=== PATIENT | male | born 1950 | race Caucasian/White ===

== ENCOUNTER 2018-07-28 13:40 | Outpatient (CLI) | payer MEDICARE, BC ==
--- NOTE | 2018-07-28 15:46 | RAD ---
CHEST 2 VIEWS: INDICATION: History of preprocedure examination. COMPARISON: None. FINDINGS: There is mild subsegmental atelectasis within the lingula. The right lung is clear. Heart size is n ormal. Aorta is tortuous. Cholecystectomy clips are seen within the right upper quadrant. No acute osseous abnormality is evident. IMPRESSION: Areas of subsegmental atelectasis in the lingula. Otherwise, negative. POS: [facility]
== END 2018-07-28 13:41 | disposition home or self-care (01) ==
LOC: BICRAD 13:40
PROVIDERS: ATTEND Internal Medicine
DX: Z01.818 Encounter for other preprocedural examination (principal); J98.11 Atelectasis
CPT/HCPCS: 71046

== ENCOUNTER 2023-03-11 09:03 | Day surgery (SDC) | payer MEDICARE, BC ==
[2023-03-11] MEDS ORDERED: diphenhydrAMINE 25 MG CAP PO SCH (10:15)
[2023-03-11] MEDS ORDERED: Acetaminophen 500 MG TAB PO SCH (10:15)
[2023-03-11] MEDS ORDERED: Acetaminophen 500 MG TAB ONE (10:24)
[2023-03-11] MEDS ORDERED: diphenhydrAMINE 25 MG CAP ONE (10:26)
[2023-03-11] MEDS ORDERED: FLU VACC QS2023(65UP)/MF59C/PF 60 MCG/0.5 ML SYRINGE IM ONE (16:00)
[2023-03-11 17:14] VITALS: BP 123/64; TEMP 98.2
== END 2023-03-11 17:08 | disposition home or self-care (01) ==
LOC: ONC/OP 09:03
PROVIDERS: ATTEND Internal Medicine Hematology & Oncology
DX: D64.9 Anemia, unspecified (principal); D69.59 Other secondary thrombocytopenia
CPT/HCPCS: 36430; 86850; 86900; 86901; 86920; 90694; G0008; P9016; 90471

== ENCOUNTER 2023-03-23 08:00 | Outpatient (CLI) | payer MEDICARE, BC | END 2023-03-23 08:01 | disposition home or self-care (01) | LOC: PET 08:00 | PROVIDERS: ATTEND Internal Medicine Hematology & Oncology | DX: C90.00 Multiple myeloma not having achieved remission (principal) | CPT/HCPCS: 78816; A9552 ==

== ENCOUNTER → 2023-03-28 | Day surgery (SDC) | payer MEDICARE, BC ==
[~2023-03-28] MED LIST: FLU VACC QS2023(65UP)/MF59C/PF 60 MCG/0.5 ML SYRINGE IM ONE; Lidocaine 1% PF 5 ML VIAL ONE; Midazolam HCl 2 mg/2 ml Vial ONE; Sodium Bicarbonate 2.5 MEQ/5 ML VIAL ONE; fentaNYL 50 mcg/mL 1 mL Vial ONE
== END ==
LOC: CT 08:22
PROVIDERS: ATTEND Internal Medicine Hematology & Oncology
PROC: 079T3ZX Drainage of Bone Marrow, Percutaneous Approach, Diagnostic (ICD-10-PCS; principal; 2023-03-28)
DX: C90.00 Multiple myeloma not having achieved remission (principal); D63.8 Anemia in other chronic diseases classified elsewhere; E78.2 Mixed hyperlipidemia; Z96.651 Presence of right artificial knee joint; Z90.49 Acquired absence of other specified parts of digestive tract; Z01.812 Encounter for preprocedural laboratory examination
CPT/HCPCS: 20225; 36415; 77002; 85025; 85097; 85610; 85730; 88184; 88185; 88237; 88264; 88280; 88305; 88311; 88341; 88342; J2250; J3010

== ENCOUNTER 2023-07-06 14:43 | Inpatient (IN) | payer MEDICARE, BC ==
[2023-07-07] MEDS ORDERED: Ondansetron PF 4 MG/2 ML Vial IVP PRN (03:32)
[2023-07-07] MEDS ORDERED: Ondansetron ODT 4 MG TAB PO PRN (03:32)
[2023-07-07] MEDS ORDERED: Acetaminophen 650 MG Suppository PR PRN (03:32)
[2023-07-07] MEDS ORDERED: Acetaminophen 325 MG TAB PO PRN (03:32)
[2023-07-07 05:21] LABS: #Monocytes 0.4 thou/uL (0.11-0.59); #Neutrophils 2.6 thou/uL (1.40-6.50); %Basophils 0.3 % (0.0-1.0); %Eosinophils 1.1 % (0.0-10.0); %Lymphocytes 13.6 % (21.0-51.0); %Monocytes 11.1 % (0.0-10.0); %Neutrophils 73.3 % (42.0-75.0); Hemoglobin 9.4 g/dL (14.0-18.0); Mean Corpuscular HGB CONC 31.3 g/dL (32.0-36.0); Mean Corpuscular Hemoglobin 29.5 pg (27.0-31.0); Platelet Count 113 10x3/uL (130-400); RBC Distribution Width 19.6 % (11.5-14.5); Red Blood Cell (RBC) Count 3.19 mill/uL (4.70-6.10); White Blood Cell (WBC) Count 3.5 10x3/uL (4.8-10.8)
[2023-07-07 05:42] LABS: Anion Gap 7 mmol/L (10-20); BUN (Urea Nitrogen) 19 mg/dL (8.4-25.7); Calc. Creatinine Clearance 89 mL/min (70-130); Calcium 8.2 mg/dL (7.8-10.44); Carbon Dioxide 24 mmol/L (23-31); Chloride 107 mmol/L (98-107); Estimated GFR 93; Glucose 96 mg/dL (83-110); Potassium 3.8 mmol/L (3.5-5.1); Sodium 134 mmol/L (136-145)
[2023-07-07] MEDS: Sertraline 25 MG TAB PO SCH (09:43)
[2023-07-07] MEDS: valACYclovir 500 MG TAB PO SCH (16:16)
[2023-07-07] MEDS: Aspirin 81 mg Enteric Coated Tablet PO SCH (16:16)
[2023-07-07] MEDS ORDERED: Communication Order-Pharmacy FS SCH (17:31)
[2023-07-07] MEDS: Atorvastatin Calcium 40 MG TAB PO SCH (20:54)
[2023-07-07] MEDS: Metoprolol Tartrate 25 MG TAB PO SCH (20:54)
[2023-07-07] MEDS ORDERED: Enoxaparin 80 MG (0.8 mL) SYRINGE SC SCH (21:00)
[2023-07-08 05:23] LABS: #Eosinphils 0.1 thou/uL (0.0-0.7); #Monocytes 0.4 thou/uL (0.11-0.59); #Neutrophils 2.8 thou/uL (1.40-6.50); %Basophils 0.3 % (0.0-1.0); %Eosinophils 1.3 % (0.0-10.0); %Lymphocytes 14.2 % (21.0-51.0); %Monocytes 11.3 % (0.0-10.0); %Neutrophils 72.4 % (42.0-75.0); Hematocrit 28.6 % (42.0-52.0); Hemoglobin 8.8 g/dL (14.0-18.0); Mean Corpuscular HGB CONC 30.8 g/dL (32.0-36.0); Mean Corpuscular Hemoglobin 28.6 pg (27.0-31.0); Mean Corpuscular Volume 92.9 fl (78.0-98.0); Mean Platelet Volume 10.5 fL (7.4-10.4); Platelet Count 132 10x3/uL (130-400); RBC Distribution Width 19.4 % (11.5-14.5); Red Blood Cell (RBC) Count 3.08 mill/uL (4.70-6.10); White Blood Cell (WBC) Count 3.8 10x3/uL (4.8-10.8)
[2023-07-08 05:58] LABS: Anion Gap 9 mmol/L (10-20); BUN (Urea Nitrogen) 17 mg/dL (8.4-25.7); Calc. Creatinine Clearance 90 mL/min (70-130); Calcium 8.4 mg/dL (7.8-10.44); Carbon Dioxide 24 mmol/L (23-31); Chloride 106 mmol/L (98-107); Estimated GFR 93; Glucose 90 mg/dL (83-110); Magnesium 1.4 mg/dL (1.6-2.6); Potassium 3.7 mmol/L (3.5-5.1); Sodium 135 mmol/L (136-145)
[2023-07-08] MEDS: Magnesium Sulfate In Water 4 GM in Premix 1 BAG IVPB SCH (08:17)
[2023-07-08] MEDS: Enoxaparin 60 MG (0.6 mL) SYRINGE SC SCH (08:17)
[2023-07-08] MEDS: valACYclovir 500 MG TAB PO SCH (08:18)
[2023-07-08] MEDS: Metoprolol Tartrate 25 MG TAB PO SCH (08:20)
[2023-07-08] MEDS ORDERED: Aspirin 81 mg Enteric Coated Tablet PO SCH (09:00)
[2023-07-10 06:04] LABS: #Monocytes 0.7 thou/uL (0.11-0.59); #Neutrophils 2.6 thou/uL (1.40-6.50); %Basophils 0.5 % (0.0-1.0); %Eosinophils 0.5 % (0.0-10.0); %Lymphocytes 13.3 % (21.0-51.0); %Monocytes 18.2 % (0.0-10.0); Hematocrit 30.1 % (42.0-52.0); Hemoglobin 9.4 g/dL (14.0-18.0); Mean Corpuscular HGB CONC 31.2 g/dL (32.0-36.0); Mean Corpuscular Hemoglobin 29.2 pg (27.0-31.0); Mean Corpuscular Volume 93.5 fl (78.0-98.0); Mean Platelet Volume 10.7 fL (7.4-10.4); Platelet Count 174 10x3/uL (130-400); RBC Distribution Width 19.7 % (11.5-14.5); Red Blood Cell (RBC) Count 3.22 mill/uL (4.70-6.10); White Blood Cell (WBC) Count 3.9 10x3/uL (4.8-10.8)
[2023-07-10 06:28] LABS: Anion Gap 10 mmol/L (10-20); BUN (Urea Nitrogen) 15 mg/dL (8.4-25.7); Calc. Creatinine Clearance 81 mL/min (70-130); Calcium 8.6 mg/dL (7.8-10.44); Carbon Dioxide 26 mmol/L (23-31); Chloride 103 mmol/L (98-107); Estimated GFR 91; Glucose 88 mg/dL (83-110); Magnesium 1.9 mg/dL (1.6-2.6); Potassium 4.2 mmol/L (3.5-5.1); Sodium 135 mmol/L (136-145)
[2023-07-11] MEDS ORDERED: CEFAZOLIN 2 GM in Sodium Chloride 0.9% 100 ML IVPB SCH (06:00)
[2023-07-11] MEDS ORDERED: Albumin 5% 500 ML ONE (06:33)
[2023-07-11] MEDS ORDERED: Heparin 10,000 UNITS/1 ML VIAL 30,000 UNITS in Sodium Chloride 0.9% 1,000 ML FS SCH (06:45)
[2023-07-11] MEDS ORDERED: Lidocaine 2% PF 100 mg/5 ml Syringe ONE ×2 (06:48→07:50)
[2023-07-11] MEDS ORDERED: PROPOFOL 20 ML ONE (06:48)
[2023-07-11] MEDS ORDERED: Rocuronium Bromide 10 MG/ML (10ML VIAL) ONE ×2 (06:48→07:49)
[2023-07-11] MEDS ORDERED: Midazolam HCl 2 mg/2 ml Vial ONE (06:48)
[2023-07-11] MEDS ORDERED: Sodium Chloride 0.9% 250 ML 250 ML ONE ×2 (06:48→09:28)
[2023-07-11] MEDS ORDERED: PHENYLEPHRINE-NS 100 MCG/ML 10 ML SYRINGE ONE ×2 (06:48)
[2023-07-11] MEDS ORDERED: ePHEDrine Sulfate 50 MG/10 ML VIAL ONE (06:48)
[2023-07-11] MEDS ORDERED: Fentanyl 250 MCG/5 ML VIAL ONE (06:48)
[2023-07-11] MEDS ORDERED: CEFAZOLIN 1 GM VIAL ONE (06:48)
[2023-07-11] MEDS ORDERED: Lidocaine 2% PF 5 ML VIAL ONE (06:48)
[2023-07-11] MEDS ORDERED: Norepinephrine 4 MG/4 ML VIAL ONE (06:48)
[2023-07-11] MEDS ORDERED: Heparin 5,000 UNITS/ML VIAL ONE (07:50)
[2023-07-11] MEDS ORDERED: Papaverine 60 MG/2 ML VIAL ONE (07:50)
[2023-07-11] MEDS ORDERED: Cardioplegic Soln 1,000 ML BAG ONE (07:50)
[2023-07-11] MEDS ORDERED: Esmolol 100 MG/10 ML VIAL ONE (07:50)
[2023-07-11] MEDS ORDERED: Thrombin 5000 UNITS/5 ML VIAL ONE (07:50)
[2023-07-11] MEDS ORDERED: Sodium Bicarb 50 mEq/50 ML VIAL ONE (07:50)
[2023-07-11] MEDS ORDERED: Potassium Chloride 60 mEq (30 mL) VIAL ONE (07:50)
[2023-07-11] MEDS ORDERED: Magnesium 5 GM/10 ML VIAL ONE (07:50)
[2023-07-11] MEDS ORDERED: Calcium Chloride 1 GM/10 ML Abboject SYRINGE ONE (07:50)
[2023-07-11] MEDS ORDERED: Protamine Sulfate 250 MG/25 ML VIAL ONE (07:50)
[2023-07-11] MEDS ORDERED: Heparin 30,000 units/30 ml VIAL ONE (07:50)
[2023-07-11] MEDS ORDERED: Aminocaproic Acid 5 GM/20 ML VIAL ONE (07:50)
[2023-07-11] MEDS ORDERED: Vancomycin 1 GM VIAL ONE (07:50)
[2023-07-11] MEDS ORDERED: Mannitol 12.5 GM/50 ML ONE (07:50)
[2023-07-11] MEDS ORDERED: Heparin 10,000 UNITS/ 10 ML VIAL ONE (08:41)
[2023-07-11] MEDS ORDERED: Insulin Regular 300 UNITS/3 ML VIAL ONE (09:53)
[2023-07-11] MEDS ORDERED: Mag-Al 1200 mg/1200 mg/30 ML UDCUP PO PRN (11:06)
[2023-07-11] MEDS ORDERED: Nitroglycerin 50 MG/250 ML BOT 250 ML IVPB PRN (11:06)
[2023-07-11] MEDS ORDERED: Ipratropium/Albuterol 3 ML NEB NEB PRN (11:06)
[2023-07-11] MEDS ORDERED: Morphine 2 MG/ML VIAL SLOW IVP PRN (11:06)
[2023-07-11] MEDS ORDERED: Guaifenesin DM 100-10/5 ML UDCUP PO PRN (11:06)
[2023-07-11] MEDS ORDERED: Ondansetron PF 4 MG/2 ML Vial IVP PRN (11:06)
[2023-07-11] MEDS ORDERED: Hetastarch 6% 500 ML 500 ML IVPB PRN (11:06)
[2023-07-11] MEDS ORDERED: Bisacodyl 5 MG TAB PO PRN (11:06)
[2023-07-11] MEDS ORDERED: hydrALAZINE 20 MG/ML VIAL SLOW IVP PRN (11:06)
[2023-07-11] MEDS ORDERED: Albumin 5% 12.5 GM (250 mL) BOT IVPB PRN (11:06)
[2023-07-11] MEDS ORDERED: Acetaminophen 325 MG TAB PO PRN (11:06)
[2023-07-11] MEDS ORDERED: Bisacodyl 10 MG SUPP PR PRN (11:06)
[2023-07-11] MEDS ORDERED: niCARdipine 25 MG in Sodium Chloride 0.9% 250 ML 250 ML IVPB PRN (11:06)
[2023-07-11] MEDS ORDERED: fentaNYL 50 mcg/mL 1 mL Vial SLOW IVP PRN ×2 (11:06)
[2023-07-11] MEDS ORDERED: HYDROcodone/Acetaminophen 5/325 mg Tablet PO PRN (11:06)
[2023-07-11] MEDS ORDERED: DOPamine 400 MG/D5W 250 ML 250 ML IVPB PRN (11:06)
[2023-07-11] MEDS ORDERED: Dextrose 5% in Water 1,000 ML IV PRN (11:15)
[2023-07-11] MEDS ORDERED: Glucagon 1 MG/ML KIT SC PRN (11:15)
[2023-07-11] MEDS ORDERED: Dextrose 50% Abboject 50 ML SYRINGE SLOW IVP PRN (11:15)
[2023-07-11] MEDS: HUMULIN R 100 UNITS in Sodium Chloride 0.9% 100 ML IVPB SCH (11:30)
[2023-07-11] MEDS: Lactated Ringer's 1,000 ML IV SCH (11:31)
[2023-07-11] MEDS: Post-Op Insulin Drip Protocol IVPB ONE (11:31)
[2023-07-11 11:41] LABS: Actual Bicarbonate (HCO3a) 21.3 mEq/L (22-28); Base Excess (BEa) -3.9 mEq/L (-2.0 to +3.0); CO2 Tension 38.9 mmHg (35.0-45.0); Calcium, Ionized (arterial) 1.09 mmol/L (1.12-1.30); Carboxyhemoglobin (COHb) 0.4 gm% (0.0-3.0); Hematocrit-ABG 27 % (42.0-52.0); Hemoglobin (Hb) 9.3 g/dL (14.0-18.0); O2 Tension (PaO2), arterial 187.7 mmHg (> 70.0); Potassium - ABG Lab 4.13 mmol/L (3.70-5.30); pH, Arterial 7.356 (7.35-7.45)
[2023-07-11 11:43] LABS: ALV-art Gradient 191.475 mmHg (0-20); Puncture Site Arterial Line
[2023-07-11] MEDS: Insulin Regular 300 UNITS/3 ML VIAL SC PRN (11:43)
[2023-07-11] MEDS: NOREPINEPHRINE 8 MG/250 ML-D5W 250 ML IVPB PRN (11:43)
[2023-07-11 11:53] LABS: #Monocytes 0.7 thou/uL (0.11-0.59); #Neutrophils 6.1 thou/uL (1.40-6.50); %Basophils 0.3 % (0.0-1.0); %Eosinophils 0.1 % (0.0-10.0); %Lymphocytes 5.6 % (21.0-51.0); %Monocytes 9.2 % (0.0-10.0); %Neutrophils 83.2 % (42.0-75.0); Hematocrit 26.4 % (42.0-52.0); Hemoglobin 8.8 g/dL (14.0-18.0); Mean Corpuscular HGB CONC 33.3 g/dL (32.0-36.0); Mean Corpuscular Hemoglobin 31.3 pg (27.0-31.0); Mean Platelet Volume 10.3 fL (7.4-10.4); Platelet Count 181 10x3/uL (130-400); RBC Distribution Width 19.7 % (11.5-14.5); Red Blood Cell (RBC) Count 2.81 mill/uL (4.70-6.10); White Blood Cell (WBC) Count 7.3 10x3/uL (4.8-10.8)
[2023-07-11 12:07] LABS: Anion Gap 11 mmol/L (10-20); BUN (Urea Nitrogen) 15 mg/dL (8.4-25.7); Calc. Creatinine Clearance 87 mL/min (70-130); Calcium 7.9 mg/dL (7.8-10.44); Carbon Dioxide 21 mmol/L (23-31); Chloride 109 mmol/L (98-107); Estimated GFR 93; Glucose 175 mg/dL (83-110); INR-International Normal Ratio 1.4; PTT 35.5 sec (22.9-36.1); Potassium 4.2 mmol/L (3.5-5.1); Prothrombin Time 17.1 sec (12.0-14.7); Sodium 137 mmol/L (136-145)
[2023-07-11] MEDS: Albumin 5% 12.5 GM (250 mL) BOT IVPB PRN (12:33)
[2023-07-11] MEDS: CEFAZOLIN 2 GM in Sodium Chloride 0.9% 100 ML IVPB SCH (13:53)
[2023-07-11] MEDS: Magnesium 2 GM/50 ML(in water) 2 GM in Premix 1 BAG IVPB SCH (13:53)
[2023-07-11 14:58] LABS: Actual Bicarbonate (HCO3a) 20.2 mEq/L (22-28); Base Excess (BEa) -4.6 mEq/L (-2.0 to +3.0); CO2 Tension 35.5 mmHg (35.0-45.0); Calcium, Ionized (arterial) 1.15 mmol/L (1.12-1.30); Carboxyhemoglobin (COHb) 2.3 gm% (0.0-3.0); Hematocrit-ABG 27 % (42.0-52.0); Hemoglobin (Hb) 9.1 g/dL (14.0-18.0); O2 Tension (PaO2), arterial 169.4 mmHg (> 70.0); Potassium - ABG Lab 4.22 mmol/L (3.70-5.30); pH, Arterial 7.372 (7.35-7.45)
[2023-07-11 14:59] LABS: ALV-art Gradient 0.125 mmHg (0-20); Puncture Site ALINE
[2023-07-11] MEDS: Ketorolac Tromethamine 30 MG (1 mL) VIAL IVP PRN (15:10)
[2023-07-11 18:17] LABS: Hematocrit 26.7 % (42.0-52.0); Hemoglobin 8.8 g/dL (14.0-18.0)
[2023-07-11 18:43] LABS: Potassium 4.5 mmol/L (3.5-5.1)
[2023-07-11] MEDS: Famotidine/PF 20 mg/2ml Vial SLOW IVP SCH (20:15)
[2023-07-12 04:15] LABS: #Monocytes 0.5 thou/uL (0.11-0.59); #Neutrophils 3.5 thou/uL (1.40-6.50); %Lymphocytes 8.4 % (21.0-51.0); %Neutrophils 79.4 % (42.0-75.0); Hematocrit 23.7 % (42.0-52.0); Hemoglobin 7.7 g/dL (14.0-18.0); Mean Corpuscular HGB CONC 32.5 g/dL (32.0-36.0); Mean Corpuscular Volume 92.2 fl (78.0-98.0); Platelet Count 156 10x3/uL (130-400); RBC Distribution Width 19.9 % (11.5-14.5); Red Blood Cell (RBC) Count 2.57 mill/uL (4.70-6.10); White Blood Cell (WBC) Count 4.4 10x3/uL (4.8-10.8)
[2023-07-12 04:31] LABS: Anion Gap 13 mmol/L (10-20); BUN (Urea Nitrogen) 19 mg/dL (8.4-25.7); Calc. Creatinine Clearance 86 mL/min (70-130); Calcium 7.8 mg/dL (7.8-10.44); Carbon Dioxide 21 mmol/L (23-31); Chloride 108 mmol/L (98-107); Estimated GFR 93; Glucose 121 mg/dL (83-110); Sodium 138 mmol/L (136-145)
[2023-07-12] MEDS: HYDROcodone/Acetaminophen 5/325 mg Tablet PO PRN (05:17)
[2023-07-12] MEDS: Potassium Chloride 20 MEQ (100 mL) BAG IVPB PRN (05:31)
[2023-07-12] MEDS: Phenylephrine 40 MG, Admixture Fee 1 EACH in Sodium Chloride 0.9% 250 ML 250 ML IVPB SCH (07:24)
[2023-07-12] MEDS: Aspirin Chewable 81 MG TAB PO SCH (10:15)
[2023-07-12] MEDS: Polyethylene Glycol 3350 17 GM Packet PO SCH (10:33)
[2023-07-12] MEDS ORDERED: Insulin Glargine 30 UNITS/0.3 ML VIAL SC PRN (11:12)
[2023-07-12 12:28] LABS: Hematocrit 29.9 % (42.0-52.0); Hemoglobin 9.7 g/dL (14.0-18.0); Platelet Count 169 10x3/uL (130-400)
[2023-07-12] MEDS: Albumin 5% 12.5 GM (250 mL) BOT IVPB SCH (12:59)
[2023-07-12] MEDS: Carvedilol 3.125 MG TAB PO SCH (16:42)
[2023-07-13 05:07] LABS: #Monocytes 0.6 thou/uL (0.11-0.59); #Neutrophils 4.6 thou/uL (1.40-6.50); %Basophils 0.4 % (0.0-1.0); %Lymphocytes 6.6 % (21.0-51.0); %Monocytes 10.5 % (0.0-10.0); %Neutrophils 82.1 % (42.0-75.0); Hemoglobin 8.5 g/dL (14.0-18.0); Mean Corpuscular HGB CONC 32.7 g/dL (32.0-36.0); Mean Corpuscular Hemoglobin 30.1 pg (27.0-31.0); Mean Corpuscular Volume 92.2 fl (78.0-98.0); Mean Platelet Volume 11.2 fL (7.4-10.4); Platelet Count 151 10x3/uL (130-400); RBC Distribution Width 18.6 % (11.5-14.5); Red Blood Cell (RBC) Count 2.82 mill/uL (4.70-6.10); White Blood Cell (WBC) Count 5.6 10x3/uL (4.8-10.8)
[2023-07-13 05:37] LABS: Anion Gap 10 mmol/L (10-20); BUN (Urea Nitrogen) 15 mg/dL (8.4-25.7); Calc. Creatinine Clearance 97 mL/min (70-130); Calcium 8.5 mg/dL (7.8-10.44); Carbon Dioxide 24 mmol/L (23-31); Chloride 105 mmol/L (98-107); Estimated GFR 96; Glucose 107 mg/dL (83-110); Potassium 3.8 mmol/L (3.5-5.1); Sodium 135 mmol/L (136-145)
[2023-07-13 12:48] LABS: Hematocrit 28.3 % (42.0-52.0); Hemoglobin 9.2 g/dL (14.0-18.0); Platelet Count 177 10x3/uL (130-400)
[2023-07-13 17:18] LABS: Hematocrit 26.5 % (42.0-52.0); Hemoglobin 8.6 g/dL (14.0-18.0); Platelet Count 163 10x3/uL (130-400)
[2023-07-14 04:20] LABS: Hematocrit 25.1 % (42.0-52.0); Mean Corpuscular HGB CONC 31.9 g/dL (32.0-36.0); Mean Corpuscular Hemoglobin 29.4 pg (27.0-31.0); Mean Corpuscular Volume 92.3 fl (78.0-98.0); Mean Platelet Volume 10.6 fL (7.4-10.4); Platelet Count 156 10x3/uL (130-400); RBC Distribution Width 18.5 % (11.5-14.5); Red Blood Cell (RBC) Count 2.72 mill/uL (4.70-6.10); White Blood Cell (WBC) Count 5.6 10x3/uL (4.8-10.8)
[2023-07-14 04:55] LABS: Anion Gap 9 mmol/L (10-20); BUN (Urea Nitrogen) 14 mg/dL (8.4-25.7); Calc. Creatinine Clearance 112 mL/min (70-130); Calcium 8.3 mg/dL (7.8-10.44); Carbon Dioxide 23 mmol/L (23-31); Chloride 104 mmol/L (98-107); Estimated GFR 99; Glucose 109 mg/dL (83-110); Potassium 3.4 mmol/L (3.5-5.1); Sodium 133 mmol/L (136-145)
[2023-07-14] MEDS: Potassium Chloride 20 MEQ TAB PO SCH (08:50)
[2023-07-14] MEDS: Sertraline 25 MG TAB PO SCH (12:25)
[2023-07-14] MEDS: Atorvastatin Calcium 20 MG TAB PO SCH (20:52)
[2023-07-14] MEDS: Famotidine 20 MG TAB PO SCH (20:53)
[2023-07-15 04:21] LABS: Hematocrit 26.6 % (42.0-52.0); Hemoglobin 8.5 g/dL (14.0-18.0); Mean Corpuscular Hemoglobin 29.4 pg (27.0-31.0); Mean Platelet Volume 10.8 fL (7.4-10.4); Platelet Count 181 10x3/uL (130-400); Red Blood Cell (RBC) Count 2.89 mill/uL (4.70-6.10); White Blood Cell (WBC) Count 4.7 10x3/uL (4.8-10.8)
[2023-07-15 04:48] LABS: Anion Gap 9 mmol/L (10-20); BUN (Urea Nitrogen) 12 mg/dL (8.4-25.7); Calc. Creatinine Clearance 106 mL/min (70-130); Calcium 8.1 mg/dL (7.8-10.44); Carbon Dioxide 24 mmol/L (23-31); Chloride 105 mmol/L (98-107); Estimated GFR 98; Glucose 111 mg/dL (83-110); Potassium 3.7 mmol/L (3.5-5.1); Sodium 134 mmol/L (136-145)
[2023-07-15] MEDS: Sertraline 25 MG TAB PO SCH (09:22)
[2023-07-15 18:14] LABS: Hematocrit 27.9 % (42.0-52.0); Hemoglobin 8.9 g/dL (14.0-18.0); Platelet Count 183 10x3/uL (130-400)
[2023-07-16 05:06] LABS: #Monocytes 0.4 thou/uL (0.11-0.59); %Basophils 0.4 % (0.0-1.0); %Eosinophils 0.2 % (0.0-10.0); %Lymphocytes 6.2 % (21.0-51.0); %Monocytes 7.7 % (0.0-10.0); %Neutrophils 84.6 % (42.0-75.0); Hematocrit 27.7 % (42.0-52.0); Hemoglobin 8.8 g/dL (14.0-18.0); Mean Corpuscular HGB CONC 31.8 g/dL (32.0-36.0); Mean Corpuscular Hemoglobin 29.3 pg (27.0-31.0); Mean Corpuscular Volume 92.3 fl (78.0-98.0); Mean Platelet Volume 10.7 fL (7.4-10.4); Platelet Count 194 10x3/uL (130-400); White Blood Cell (WBC) Count 4.7 10x3/uL (4.8-10.8)
[2023-07-16 05:44] LABS: Anion Gap 12 mmol/L (10-20); BUN (Urea Nitrogen) 12 mg/dL (8.4-25.7); Calc. Creatinine Clearance 109 mL/min (70-130); Carbon Dioxide 25 mmol/L (23-31); Chloride 103 mmol/L (98-107); Estimated GFR 99; Glucose 100 mg/dL (83-110); Potassium 3.6 mmol/L (3.5-5.1); Sodium 136 mmol/L (136-145)
[2023-07-16] MEDS: Potassium Bicarbonate/Cit Ac 20 MEQ TAB PO SCH (13:28)
[2023-07-16] MEDS: Metoprolol Tartrate 25 MG TAB PO SCH (16:32)
[2023-07-17] MEDS: Metoprolol Tartrate 25 MG TAB PO SCH (08:57)
[2023-07-18 04:17] LABS: Hemoglobin 8.6 g/dL (14.0-18.0); Mean Corpuscular HGB CONC 31.9 g/dL (32.0-36.0); Mean Corpuscular Hemoglobin 29.9 pg (27.0-31.0); Mean Corpuscular Volume 93.8 fl (78.0-98.0); Mean Platelet Volume 10.3 fL (7.4-10.4); Platelet Count 223 10x3/uL (130-400); RBC Distribution Width 18.8 % (11.5-14.5); Red Blood Cell (RBC) Count 2.88 mill/uL (4.70-6.10); White Blood Cell (WBC) Count 4.6 10x3/uL (4.8-10.8)
[2023-07-18 04:34] LABS: Anion Gap 9 mmol/L (10-20); BUN (Urea Nitrogen) 11 mg/dL (8.4-25.7); Calc. Creatinine Clearance 101 mL/min (70-130); Calcium 8.2 mg/dL (7.8-10.44); Carbon Dioxide 27 mmol/L (23-31); Cardiac Risk 4.6 (Less than 4.5); Chloride 102 mmol/L (98-107); Cholesterol 79 mg/dl (< 200 Desired); Estimated GFR 97; Glucose 98 mg/dL (83-110); HDL Cholesterol 17 mg/dL (>60 Neg Risk); LDL Cholesterol, Calculated 42 mg/dL; Magnesium 1.8 mg/dL (1.6-2.6); Potassium 3.8 mmol/L (3.5-5.1); Sodium 134 mmol/L (136-145); Triglycerides 100 mg/dL (Less than 150)
[2023-07-19 13:48] VITALS: BP 111/70
[2023-07-19 16:14] VITALS: TEMP 98.7
[2023-07-19 16:28] VITALS: BMI 21.8
== END 2023-07-19 16:44 | disposition home or self-care (01) | DRG 236 ==
LOC: 2NO 14:43 → CCU 07-11 07:34
PROVIDERS: ADMIT Hospitalist; ATTEND Internal Medicine
PROC: 02100Z9 Bypass Coronary Artery, One Artery from Left Internal Mammary, Open Approach (ICD-10-PCS; principal; 2023-07-11)
PROC: 021109W Bypass Coronary Artery, Two Arteries from Aorta with Autologous Venous Tissue, Open Approach (ICD-10-PCS; 2023-07-11)
PROC: 06BQ0ZZ Excision of Left Saphenous Vein, Open Approach (ICD-10-PCS; 2023-07-11)
PROC: 02L70CK Occlusion of Left Atrial Appendage with Extraluminal Device, Open Approach (ICD-10-PCS; 2023-07-11)
PROC: 5A1221Z Performance of Cardiac Output, Continuous (ICD-10-PCS; 2023-07-11)
PROC: 30243N1 Transfusion of Nonautologous Red Blood Cells into Central Vein, Percutaneous Approach (ICD-10-PCS; 2023-07-11)
PROC: 30243K1 Transfusion of Nonautologous Frozen Plasma into Central Vein, Percutaneous Approach (ICD-10-PCS; 2023-07-11)
DX: I21.4 Non-ST elevation (NSTEMI) myocardial infarction (principal); C90.00 Multiple myeloma not having achieved remission; E87.1 Hypo-osmolality and hyponatremia; D69.6 Thrombocytopenia, unspecified; D63.0 Anemia in neoplastic disease; E83.42 Hypomagnesemia; I25.10 Atherosclerotic heart disease of native coronary artery without angina pectoris; I95.9 Hypotension, unspecified; I25.5 Ischemic cardiomyopathy; Z79.82 Long term (current) use of aspirin; Z79.899 Other long term (current) drug therapy
CPT/HCPCS: 36415; 36416; 36430; 71045; 80048; 80061; 82805; 82947; 83735; 85025; 85027; 85610; 85730; 86850; 86900; 86901; 93005; 93010; 93306; 93798; 94002; A4311; A4648; C1751; C1889; J0690; J1642; J1644; J1650; J1815; J1885; J2001; J2150; J2250; J2371; J2440; J2704; J2720; J3010; J3370; J3475; J3480; J3490; J7050; J7120; P9016; P9035; P9045; P9059; S0017; S0028